=== PATIENT | female | born 1985 | race African-American/Black ===

== ENCOUNTER 2017-08-18 10:15 | Day surgery (SDC) | payer OTHER ==
[2017-08-18 10:40] VITALS: BMI 32.3
--- NOTE | 2017-08-18 11:21 | PROC ---
Endoscopy Procedure Endoscopy procedure completed. Please see scanned procedure report.
[2017-08-18] MEDS ORDERED: PROPOFOL 20 ML ONE ×2 (11:27)
[2017-08-18 11:30] VITALS: TEMP 98.3
[2017-08-18 12:48] VITALS: BP 140/90; PULSE 69
--- NOTE | 2017-08-21 10:52 | PATH ---
Surgical Pathology Report Patient Name: JOANA THOMAS [facility]. Rec. #: [id number] /Age/Gender: 1985 (Age: 32) / F Account: [id number] Location: [facility]-ENDOSCOPY Taken: 08/18/2017 Received: 08/18/2017 Reported: 08/21/2017 Physicians: Cuate Berman M.D. Specimen(s) Received A: BX DUODENUM B: BX ANTRUM/BODY C: BX GASTRIC BODY Clinical History GERD Postop diagnosis: Gastritis Final Diagnosis A. DUODENUM, BIOPSY: DUODENAL MUCOSA WITH NO DIAGNOSTIC ABNORMALITIES. B. ANTRUM/BODY, BIOPSY: GASTRIC MUCOSA WITH MILD CHRONIC GASTRITIS. IMMUNOSTAIN IS NEGATIVE FOR H. PYLORI ORGANISMS. C. GASTRIC BODY, BIOPSY: GASTRIC MUCOSA WITH MILD CHRONIC GASTRITIS. IMMUNOSTAIN IS NEGATIVE FOR H. PYLORI ORGANISMS. Electronically Signed Dianne Louis M.D. Gross Description A. Received in formalin, labeled "biopsy duodenum" are 3 west, irregular portions of soft tissue ranging from 0.1-0.5 cm. in greatest dimension. The specimens are submitted in toto in one cassette. B. Received in formalin, labeled "biopsy antrum/body" are 3 west, irregular portions of soft tissue averaging 0.3 cm. in greatest dimension. The specimens are submitted in toto in one cassette. C. Received in formalin, labeled "biopsy gastric body" are 2 west, irregular portions of soft tissue measuring 0.3 and 0.7 cm. in greatest dimension. The specimens are submitted in toto in one cassette. /08/18/2017 saudi08/18/2017
== END 2017-08-18 12:59 | disposition home or self-care (01) ==
LOC: JASU-ENDO 10:15
PROVIDERS: ATTEND Internal Medicine Gastroenterology
PROC: 0DB68ZX Excision of Stomach, Via Natural or Artificial Opening Endoscopic, Diagnostic (ICD-10-PCS; 2017-08-18)
PROC: 0DB98ZX Excision of Duodenum, Via Natural or Artificial Opening Endoscopic, Diagnostic (ICD-10-PCS; principal; 2017-08-18 10:30)
DX: K29.70 Gastritis, unspecified, without bleeding (principal); K44.9 Diaphragmatic hernia without obstruction or gangrene; R10.13 Epigastric pain
CPT/HCPCS: 84703; 88305-TC; 88342-TC